=== PATIENT | female | born 1970 | race American Indian/Alaskan Native ===

== ENCOUNTER 2021-06-08 16:18 | Emergency (ER) | payer MEDICAID ==
[2021-06-08] MEDS ORDERED: Sodium Chloride 0.9% 10 ML Syringe FLUSH PRN (16:31)
[2021-06-08] MEDS ORDERED: Sodium Chloride 0.9% 2.5 ML Syringe FLUSH PRN (16:31)
[2021-06-08] MEDS ORDERED: Sodium Chloride 0.9% 1,000 ML IV ONE (16:32)
[2021-06-08] MEDS ORDERED: LORazepam 2 MG/ML SDV IVPUSH ONE (16:32)
[2021-06-08 16:58] LABS: BLOOD UREA NITROGEN,BUN 11 mg/dL (7.0-18.0); CARBON DIOXIDE,CO2 22.1 mmol/L (21.0-32.0); CHLORIDE,CL 103 mmol/L (98-107); GLUCOSE RANDOM 80 mg/dL (74-106); POTASSIUM,K 3.2 mmol/L (3.5-5.1); SODIUM,NA 141 mmol/L (136-145)
== END 2021-06-08 18:12 | disposition home or self-care (01) ==
LOC: MW.ED 16:18
DX: T75.4XXA Electrocution, initial encounter (principal); Z88.8 Allergy status to other drugs, medicaments and biological substances
CPT/HCPCS: 36415; 80053; 82550; 83735; 84484; 85025; 85610; 93005; 96374; 99283; J2060; J7030